=== PATIENT | female | born 1980 | race Caucasian/White ===

== ENCOUNTER 2024-06-25 08:52 | Emergency (ER) | payer BC ==
[~2024-06-25] VITALS: Ht 162.6 cm; Wt 136.4 kg
[2024-06-25] MEDS ORDERED: LEVOTHYROXINE13 MCG PO (09:03)
[2024-06-25] MEDS ORDERED: LORATADINE10 MG PO (09:04)
[2024-06-25] MEDS ORDERED: LEXAPRO20 M1 PO (09:17)
[2024-06-25] MEDS ORDERED: XYZAL5 MG PO (09:17)
[2024-06-25] MEDS ORDERED: GLUCOPHAGE PO (09:17)
[2024-06-25] MEDS ORDERED: ROSUVASTATIN CA10 MG PO (09:17)
[2024-06-25 09:18] LABS: BASO # 0.02 K/mm3 (0.02-0.10); EOS # 0.36 K/mm3 (0.04-0.40); EOS % 3.7 % (1.0-5.0); HEMATOCRIT 46.5 % (37.0-47.0); HEMOGLOBIN 15.4 g/dL (12.5-16.0); LYMPH# 1.85 K/mm3 (1.50-4.00); MEAN CELL VOLUME 94 fl (78-100); MEAN CORPUSCULAR HEMOGLOBIN 31 pg (27-31); MEAN CORPUSCULAR HGB CONC 33 g/dL (33-37); MEAN PLATELET VOLUME 9.5 fl (7.4-10.4); NEU # 6.49 K/mm3 (1.40-6.50); PLATELET COUNT 360 K/mm3 (130-400); RED BLOOD COUNT 4.95 M/mm3 (4.10-5.30); RED CELL DISTRIBUTION WIDTH 12.3 % (11.5-14.5); WHITE BLOOD COUNT 9.7 K/mm3 (4.8-10.8)
[2024-06-25 09:27] LABS: ALBUMIN 4.1 g/dL (3.5-5.0)
[2024-06-25 09:28] LABS: CALCIUM 9.1 mg/dL (8.3-10.5)
[2024-06-25 09:30] LABS: TOTAL PROTEIN 7.2 g/dL (6.4-8.3)
[2024-06-25] MEDS ORDERED: Ketorolac 30 MG/ML VIAL IV ONE (09:30)
[2024-06-25 09:31] LABS: TOTAL BILIRUBIN 0.6 mg/dL (0.2-1.2)
[2024-06-25 09:31] LABS: URINE MUCUS PRESENT (NOT PRESENT)
[2024-06-25] MEDS ORDERED: cefTRIAXone 1 G in Water For Injection,Sterile 10 ML IV ONE (10:30)
[2024-06-25] MEDS ORDERED: NS 1,000 ML IV SCH (11:30)
[2024-06-25 12:28] VITALS: BP 137/74
[2024-06-25] MEDS ORDERED: CEFDINIR300 MG PO (12:28)
[2024-06-25] MEDS ORDERED: PERCOCET 325 MG1 TA2 PO (12:28)
[2024-06-25] MEDS ORDERED: ZOFRAN ODT4 MG PO (12:28)
[2024-06-25] MEDS ORDERED: FLOMAX0.4 MG PO (12:28)
[2024-06-25] MEDS ORDERED: KETOROLAC10 MG PO (12:28)
== END 2024-06-25 12:35 | disposition home or self-care (01) ==
LOC: ED 08:52
PROVIDERS: Family Medicine
DX: N20.1 Calculus of ureter (principal); Z88.0 Allergy status to penicillin
CPT/HCPCS: J0696; J1885; J7030